=== PATIENT | female | born 1995 | race Two or more races ===

== ENCOUNTER 2017-03-27 18:33 | Emergency (ER) | payer MEDICAID, OTHER, SELFPAY ==
[~2017-03-27] VITALS: Ht 157.5 cm; Wt 70.5 kg
[2017-03-27 18:37] VITALS: BP 109/73
[2017-03-27] MEDS ORDERED: KETOROLAC 30 MG/1 ML IM ONE (19:30)
[2017-03-27] MEDS ORDERED: METHOCARBAMOL 750 MG TABLET PO ONE (19:30)
[2017-03-27] MEDS ORDERED: METHOCARBAMOL 750 MG TABLET ONE (19:32)
[2017-03-27] MEDS ORDERED: KETOROLAC 30 MG/1 ML ONE (19:32)
[2017-03-27] MEDS ORDERED: HYDROcodone/APAP 5/325 TABLET ONE (20:20)
[2017-03-27] MEDS ORDERED: HYDROcodone/APAP 5/325 TABLET PO ONE (20:30)
== END 2017-03-27 20:49 | disposition home or self-care (01) ==
LOC: ED 20:43
DX: S39.012A Strain of muscle, fascia and tendon of lower back, initial encounter (principal); M62.830 Muscle spasm of back; W01.0XXA Fall on same level from slipping, tripping and stumbling without subsequent striking against object, initial encounter; Y93.89 Activity, other specified; Y92.89 Other specified places as the place of occurrence of the external cause; Y99.8 Other external cause status
CPT/HCPCS: 72110; 96372; 99284; J1885

== ENCOUNTER 2019-09-19 12:23 | Inpatient (IN) | payer OTHER ==
[~2019-09-19] VITALS: Ht 154.9 cm; Wt 95.0 kg
[2019-09-28 23:02] VITALS: BP 133/67
[2019-09-28] MEDS ORDERED: OXYTOCIN 30U/ 0.9% NaCL 500ML 500 ML IV PRN (23:12)
[2019-09-28] MEDS ORDERED: OXYTOCIN 30U/ 0.9% NaCL 500ML 500 ML IV ONE (23:12)
[2019-09-28] MEDS ORDERED: D5%-LACTATED RINGERS 1,000 ML IV SCH (23:12)
[2019-09-28] MEDS ORDERED: MISOPROSTOL 200 MCG TABLET ONE (23:21)
[2019-09-28] MEDS ORDERED: MISOPROSTOL 25 MCG TABLET ONE (23:21)
[2019-09-28] MEDS ORDERED: LIDOCAINE 1%, 20ML ONE (23:21)
[2019-09-28] MEDS ORDERED: OXYTOCIN 30U/ 0.9% NaCL 500ML 500 ML ONE (23:22)
[2019-09-28] MEDS ORDERED: NEWBORN KIT ONE (23:23)
[2019-09-28] MEDS ORDERED: TERBUTALINE 1 MG/ML, 1ML IVPush PRN (23:30)
[2019-09-28] MEDS ORDERED: METOCLOPRAMIDE 5 MG/ML, 2ML IVPush PRN (23:30)
[2019-09-28] MEDS ORDERED: SODIUM CHLORIDE FLUSH 10ML SYR IVF PRN (23:30)
[2019-09-28] MEDS ORDERED: FENTANYL PF 100 MCG/2ML IVPush PRN (23:30)
[2019-09-28] MEDS ORDERED: FENTANYL PF 100 MCG/2ML IV PRN (23:30)
[2019-09-28] MEDS ORDERED: ONDANSETRON 2MG/ML, 2ML IVPush PRN (23:30)
[2019-09-28] MEDS ORDERED: TERBUTALINE 1 MG/ML, 1ML SQ PRN (23:30)
[2019-09-28] MEDS ORDERED: SODIUM CITRATE/CITRIC ACID 30 ML UDC PO PRN (23:30)
[2019-09-28] MEDS ORDERED: CALCIUM CARBONATE 500 MG TAB.CHEW PO PRN (23:30)
[2019-09-28] MEDS: MISOPROSTOL 25 MCG TABLET VG PRN (23:40)
[2019-09-28 23:50] LABS: BASOPHILS # (AUTO) 0.03 x10^3/uL (0-0.1); BASOPHILS % (AUTO) 0 % (0-1); EOSINOPHILS # (AUTO) 0.04 x10^3/uL (0-0.4); EOSINOPHILS % (AUTO) 1 % (1-7); LYMPHOCYTES # (AUTO) 2.87 x10^3/uL (1-3.4); LYMPHOCYTES % (AUTO) 35 % (22-44); MD NO; MEAN CORPUSCULAR HEMOGLOBIN 30.1 pg (27.0-34.8); MEAN CORPUSCULAR HGB CONC 33.3 g/dL (32.4-35.8); MEAN CORPUSCULAR VOLUME 90.5 fL (80-100); MEAN PLATELET VOLUME 9.1 fL (7.4-10.4); MONOCYTES # (AUTO) 0.57 x10^3/uL (0.2-0.8); MONOCYTES % (AUTO) 7 % (2-9); NEUTROPHILS # (AUTO) 4.65 x10^3/uL (1.8-6.8); NEUTROPHILS % (AUTO) 57 % (42-75); PLATELET COUNT 263 x10^3/uL (130-400); RED CELL DISTRIBUTION WIDTH 15.5 % (9.6-15.2)
[2019-09-29] MEDS ORDERED: MISOPROSTOL 25 MCG TABLET ONE ×2 (04:01→10:28)
[2019-09-29] MEDS: MISOPROSTOL 25 MCG TABLET VG PRN (04:09)
[2019-09-29] MEDS ORDERED: METOCLOPRAMIDE 5 MG/ML, 2ML ONE (04:22)
[2019-09-29] MEDS ORDERED: SODIUM CITRATE/CITRIC ACID 30 ML UDC ONE (04:23)
[2019-09-29] MEDS: LACTATED RINGERS 1,000 ML IV SCH ×2 (10:59→18:39)
[2019-09-29] MEDS ORDERED: FENTANYL PF 100 MCG/2ML ONE (13:19)
[2019-09-29] MEDS ORDERED: FENTANYL/BUPIV./NS/PF 250 ML EPIDCONT ONE (18:45)
[2019-09-29] MEDS ORDERED: BUPIVACAINE 0.25% ONE (18:50)
[2019-09-29] MEDS ORDERED: LACTATED RINGERS 1,000 ML IVBOLUS PRN ×2 (19:00→20:00)
[2019-09-29] MEDS ORDERED: FENTANYL/BUPIV./NS/PF 250 ML EPIDCONT SCH (19:34)
[2019-09-29] MEDS ORDERED: LACTATED RINGERS 1,000 ML IV SCH (19:34)
[2019-09-29] MEDS ORDERED: EPHEDRINE 50 MG/ML, 1ML IVPush PRN (20:00)
[2019-09-29] MEDS ORDERED: ONDANSETRON 2MG/ML, 2ML IVPush PRN (20:00)
[2019-09-29] MEDS ORDERED: NALOXONE 0.4 MG/ML, 1ML IVPush PRN (20:00)
[2019-09-29] MEDS ORDERED: DIPHENHYDRAMINE 50 MG/ML, 1ML IVPush PRN (20:00)
[2019-09-29 20:22] LABS: ALANINE AMINOTRANSFERASE 31 U/L (12-78); ALBUMIN 2.5 g/dL (3.4-5.0); ANION GAP 8 mmol/L (5-15); CHLORIDE 108 mmol/L (98-107); CREATININE 0.55 mg/dL (0.55-1.02)
[2019-09-29 20:24] LABS: ALKALINE PHOSPHATASE 225 U/L (45-117); BILIRUBIN,TOTAL 0.4 mg/dL (0.2-1.0); TOTAL PROTEIN 6.5 g/dL (6.4-8.2)
[2019-09-29 21:43] LABS: CREATININE,URINE RANDOM 32.9 mg/dL
[2019-09-30] MEDS ORDERED: AZITHROMYCIN 500 MG in SODIUM CHLORIDE 0.9% 250 ML IV ONE (04:30)
[2019-09-30] MEDS: LACTATED RINGERS 1,000 ML IV SCH ×6 (04:30→19:33)
[2019-09-30] MEDS ORDERED: morphine SULFATE/PF 0.5 MG/ML, 10ML ONE (05:00)
[2019-09-30] MEDS ORDERED: LACTATED RINGERS 1,000 ML IVBOLUS ONE (05:00)
[2019-09-30] MEDS ORDERED: METOCLOPRAMIDE 5 MG/ML, 2ML IV ONE (05:00)
[2019-09-30] MEDS ORDERED: SODIUM CITRATE/CITRIC ACID 30 ML UDC PO ONE (05:00)
[2019-09-30] MEDS ORDERED: OXYTOCIN 10 UNITS/ML, 1ML ONE (05:08)
[2019-09-30] MEDS ORDERED: CEFAZOLIN 1,000 MG ONE (05:08)
[2019-09-30] MEDS ORDERED: ONDANSETRON 2MG/ML, 2ML ONE (05:08)
[2019-09-30] MEDS ORDERED: WATER-INJECTION,STERILE 10 ML IV ONE (05:08)
[2019-09-30] MEDS ORDERED: KETOROLAC 30 MG/1 ML ONE (05:08)
[2019-09-30] MEDS ORDERED: DEXAMETHASONE 4 MG/ML, 1ML ONE (05:08)
[2019-09-30] MEDS ORDERED: TRANEXAMIC ACID 100 MG/ML, 10ML ONE (05:25)
[2019-09-30] MEDS ORDERED: TRANEXAMIC ACID 100 MG/ML, 10ML IV ONE ×2 (05:30→06:30)
[2019-09-30] MEDS ORDERED: MIDAZOLAM 1 MG/ML, 2ML ONE (05:34)
[2019-09-30] MEDS: OXYTOCIN 30U/ 0.9% NaCL 500ML 500 ML IV SCH ×2 (06:05→16:05)
[2019-09-30] MEDS ORDERED: EPHEDRINE 50 MG/ML, 1ML ONE (06:22)
[2019-09-30] MEDS ORDERED: BISACODYL 10 MG SUPP PR PRN (06:30)
[2019-09-30] MEDS ORDERED: CALCIUM CARBONATE 500 MG TAB.CHEW PO PRN (06:30)
[2019-09-30] MEDS ORDERED: OXYcodone IR 5MG TABLET PO PRN (06:30)
[2019-09-30] MEDS ORDERED: SIMETHICONE 80 MG CHEW TAB PO PRN (06:30)
[2019-09-30] MEDS: IBUPROFEN 600 MG TABLET PO SCH ×3 (06:30→18:30)
[2019-09-30] MEDS ORDERED: ONDANSETRON 2MG/ML, 2ML IV PRN (06:30)
[2019-09-30] MEDS ORDERED: MISOPROSTOL 200 MCG TABLET PR PRN (06:30)
[2019-09-30] MEDS ORDERED: OXYcodone 5 MG/5 ML ORAL.SOL UDC ONE (07:07)
[2019-09-30] MEDS ORDERED: OXYcodone 5 MG/5 ML ORAL.SOL UDC PO PRN (07:30)
[2019-09-30 08:50] VITALS: BP 115/61
[2019-09-30] MEDS: PRENATAL VIT/IRON/FA 1 EACH TABLET PO SCH (09:00)
[2019-09-30] MEDS: ACETAMINOPHEN 325 MG TABLET PO SCH ×3 (09:00→21:00)
[2019-09-30] MEDS: KETOROLAC 30 MG/1 ML IV SCH ×3 (09:09→18:35)
[2019-09-30 09:21] LABS: MEAN CORPUSCULAR HEMOGLOBIN 30.7 pg (27.0-34.8); MEAN CORPUSCULAR HGB CONC 33.5 g/dL (32.4-35.8); MEAN CORPUSCULAR VOLUME 91.7 fL (80-100); MEAN PLATELET VOLUME 8.3 fL (7.4-10.4); PLATELET COUNT 231 x10^3/uL (130-400); RED BLOOD COUNT 3.92 x10^6/uL (3.82-5.3); RED CELL DISTRIBUTION WIDTH 14.9 % (9.6-15.2)
[2019-09-30 10:05] LABS: MD YES
[2019-09-30 10:07] LABS: BAND#(MANUAL) 1.86 x10^3/uL; BANDS%(MANUAL) 11 % (0-7); LYMPH#(MANUAL) 1.01 x10^3/uL (1-3.4); LYMPHS% (MANUAL) 6 % (22-44); MONOS#(MANUAL) 0.51 x10^3/uL (0.3-2.7); MONOS% (MANUAL) 3 % (2-9); MYELOCYTES# (MANUAL) 0.17 x10^3/uL (0-0); MYELOCYTES% (MANUAL) 1 % (0-0); SEGS% (MANUAL) 79 % (42-75)
[2019-09-30 10:08] LABS: <PLATELET ESTIMATE> ADEQUATE; <PLT MORPHOLOGY> NORMAL PLT MORPH; <RBC MORPHOLOGY> NORMAL
[2019-09-30] MEDS ORDERED: CARBOPROST TROMETHAMINE 250 MCG/ML, 1ML IM ONE (11:23)
[2019-09-30 13:24] VITALS: BP 103/70
[2019-09-30] MEDS: OXYcodone IR 5MG TABLET PO PRN (17:39)
[2019-09-30] MEDS: DOCUSATE 100 MG CAPSULE PO PRN (17:39)
[2019-09-30 17:48] VITALS: BP 106/71
[2019-09-30 20:00] VITALS: BP 104/66
[2019-10-01] MEDS: KETOROLAC 30 MG/1 ML IV SCH ×4 (00:15→18:06)
[2019-10-01 00:27] VITALS: BP 115/78
[2019-10-01] MEDS: IBUPROFEN 600 MG TABLET PO SCH ×4 (00:30→18:30)
[2019-10-01] MEDS: LACTATED RINGERS 1,000 ML IV SCH ×6 (02:05→22:05)
[2019-10-01] MEDS: OXYTOCIN 30U/ 0.9% NaCL 500ML 500 ML IV SCH ×3 (02:05→21:51)
[2019-10-01] MEDS: ACETAMINOPHEN 325 MG TABLET PO SCH ×4 (03:00→21:00)
[2019-10-01 04:09] VITALS: BP 108/69
[2019-10-01 07:30] VITALS: BP 108/72
[2019-10-01] MEDS: OXYcodone IR 5MG TABLET PO PRN ×4 (07:33→21:44)
[2019-10-01] MEDS: DOCUSATE 100 MG CAPSULE PO PRN ×2 (07:34→21:44)
[2019-10-01] MEDS: PRENATAL VIT/IRON/FA 1 EACH TABLET PO SCH (07:34)
[2019-10-01 19:32] VITALS: BP 107/71
[2019-10-02] MEDS: IBUPROFEN 600 MG TABLET PO SCH ×4 (00:30→17:20)
[2019-10-02] MEDS: KETOROLAC 30 MG/1 ML IV SCH (00:32)
[2019-10-02] MEDS: ACETAMINOPHEN 325 MG TABLET PO SCH ×3 (03:00→13:32)
[2019-10-02] MEDS: LACTATED RINGERS 1,000 ML IV SCH ×2 (05:29→08:05)
[2019-10-02] MEDS: DOCUSATE 100 MG CAPSULE PO PRN (07:24)
[2019-10-02] MEDS: PRENATAL VIT/IRON/FA 1 EACH TABLET PO SCH (07:24)
[2019-10-02] MEDS: OXYcodone IR 5MG TABLET PO PRN ×2 (07:24→13:32)
[2019-10-02 07:30] VITALS: BP 130/83
[2019-10-02] MEDS: OXYTOCIN 30U/ 0.9% NaCL 500ML 500 ML IV SCH (08:05)
[2019-10-02] MEDS ORDERED: OXYC5CAP2 PO (10:38)
[2019-10-02] MEDS ORDERED: ACET-2065 PO (10:40)
[2019-10-02] MEDS ORDERED: IBUP-1222 PO (10:41)
[2019-10-02] MEDS ORDERED: DOCU-131 PO (10:41)
[2019-10-02] MEDS ORDERED: FERR325T5 PO (10:43)
== END 2019-10-02 21:50 | disposition home or self-care (01) | DRG 788 ==
LOC: LDIP 09-28 23:00 → 2NW 09-30 08:40
PROVIDERS: ADMIT Student in an Organized Health Care Education/Training Program; ATTEND Student in an Organized Health Care Education/Training Program
PROC: 10D00Z1 Extraction of Products of Conception, Low, Open Approach (ICD-10-PCS; principal; 2019-09-30)
DX: O48.0 Post-term pregnancy (principal); Z37.0 Single live birth; D50.9 Iron deficiency anemia, unspecified; E55.9 Vitamin D deficiency, unspecified; E66.01 Morbid (severe) obesity due to excess calories; O13.4 Gestational [pregnancy-induced] hypertension without significant proteinuria, complicating childbirth; O62.0 Primary inadequate contractions; O99.02 Anemia complicating childbirth; O99.214 Obesity complicating childbirth; O99.284 Endocrine, nutritional and metabolic diseases complicating childbirth; Z3A.41 41 weeks gestation of pregnancy; Z83.3 Family history of diabetes mellitus
CPT/HCPCS: 36415; J3490; 80053; 82570; 82803; 84156; 84550; 85025; 86592; 86850; 86900; G0378; J0456; J0690; J1100; J1885; J2250; J2274; J2405; J3010; J2590; J7050; J7120

== ENCOUNTER 2020-05-30 15:26 | Emergency (ER) | payer OTHER ==
[~2020-05-30] VITALS: Ht 157.5 cm; Wt 81.7 kg
[~2020-05-30 15:26] MED LIST: ACET-2065 PO; DOCU-131 PO; FERR325T5 PO; IBUP-1222 PO; OXYC5CAP2 PO
[2020-05-30] MEDS ORDERED: CYCLOBENZAPRINE 10 MG TABLET PO ONE (16:00)
[2020-05-30] MEDS ORDERED: KETOROLAC 30 MG/1 ML IM ONE (16:00)
[2020-05-30 16:08] LABS: BASOPHILS % (AUTO) 1 % (0-1); EOSINOPHILS % (AUTO) 1 % (1-7); LYMPHOCYTES % (AUTO) 51 % (22-44); MEAN CORPUSCULAR HEMOGLOBIN 29.8 pg (27.0-34.8); MEAN CORPUSCULAR HGB CONC 34.1 g/dL (32.4-35.8); MEAN PLATELET VOLUME 8.2 fL (7.4-10.4); MONOCYTES % (AUTO) 6 % (2-9); NEUTROPHILS % (AUTO) 42 % (42-75); PLATELET COUNT 339 x10^3/uL (130-400); RED BLOOD COUNT 4.41 x10^6/uL (3.82-5.3); RED CELL DISTRIBUTION WIDTH 13.4 % (9.6-15.2)
[2020-05-30 16:11] LABS: MD NO
[2020-05-30 16:20] LABS: ALANINE AMINOTRANSFERASE 35 U/L (12-78); ALBUMIN 3.8 g/dL (3.4-5.0); ANION GAP 5 mmol/L (5-15); CALCIUM 9.2 mg/dL (8.5-10.1); CHLORIDE 107 mmol/L (98-107); CREATININE 0.66 mg/dL (0.55-1.02)
[2020-05-30 16:22] LABS: ALKALINE PHOSPHATASE 93 U/L (45-117); BILIRUBIN,TOTAL 0.3 mg/dL (0.2-1.0); TOTAL PROTEIN 8.1 g/dL (6.4-8.2)
[2020-05-30] MEDS ORDERED: NORE-88 PO (16:26)
--- NOTE | 2020-05-30 16:26 | NUR ---
PT IS A 24F COMPLAINING OF INTERMITTANT CP X 1 WEEK WITH SOB. SHE STARTED A NEW CONTROL 2 WEEKS AGO AND WONDERS IF THAT IS THE CAUSE. DENIES N/V. SHE ALSO DESCRIBES PALPITATIONS WHEN THE CP HAPPENS. SIG OTHER AT BEDSIDE. CARDIAC, SP02, AND BP MONITOR IN PLACE. CALL LIGHT WITHIN REACH.FRIEND AT BEDSIDE.
[2020-05-30] MEDS ORDERED: CYCLOBENZAPRINE 10 MG TABLET ONE (16:31)
[2020-05-30] MEDS ORDERED: KETOROLAC 30 MG/1 ML ONE (16:31)
--- NOTE | 2020-05-30 17:19 | NUR ---
THE PATIENT STATES THE MEDICATIONS HELPED HER PAIN AND IS NOW DOWN TO A /10. FRIEND AT BEDSIDE, CALL LIGHT WITHIN REACH, AWAITING DISPOSITION.
[2020-05-30 17:44] VITALS: BP 115/78
== END 2020-05-30 17:54 | disposition home or self-care (01) ==
LOC: ED 17:00
DX: R07.89 Other chest pain (principal); R00.2 Palpitations; Z79.899 Other long term (current) drug therapy
CPT/HCPCS: 36415; 71045; 80053; 85025; 85379; 93005; 96372; 99285; J1885